=== PATIENT | female | born 1995 | race Caucasian/White ===

== ENCOUNTER 2019-05-28 18:11 | Emergency (ER) | payer OTHER, SELFPAY ==
[2019-05-28 18:12] VITALS: BP 141/91; PULSE 120; RESP 20; TEMP 37; O2SAT 98; BMI 18.6
--- NOTE | 2019-05-28 18:22 | EKG12_ITS ---
Test Reason : SOB Blood Pressure : / mmHG Vent. Rate : 102 BPM Atrial Rate : 102 BPM P-R Int : 130 ms QRS Dur : 078 ms QT Int : 330 ms P-R-T Axes : 045 028 033 degrees QTc Int : 430 ms Sinus tachycardia Otherwise normal ECG No previous ECGs available Confirmed by ERIN ATKINS, GIULIANA ([id number]), technical writer and editor MARCIAL TORRES ([id number]) on 06/11/2019 11:09:34 AM Referred By: KACEY Confirmed By:JARETH KHAN MD
--- NOTE | 2019-05-28 18:23 | ED.VIS.GEN ---
History of Present Illness Chief Complaint: Shortness of Breath Informant: Patient Onset: Days Context: Gradual Onset Timing: Continuous Current Severity: Moderate Maximum Severity: Moderate Narrative: 23-year-old female with medical history significant for asthma who presents to the emergency department with cough, shortness of breath, and chest pain. Patient states that usually, she had a flare in the winter. She has been compliant with all the therapy. She states on , she began to feel like she is having a cold. She states that she started prednisone 2 days ago. Today, she began to have pain mostly in her right chest when she would breathe or cough. She felt more short of breath despite using her inhaler. She denies any fever. She did have a negative influenza testing. She has had scant sputum which she states is normal when she gets an asthma flare. Prior similar symptoms: Yes Recent Illness/Hospitalization: No Past Medical History - Allergies and Home Meds Allergies/Adverse Reactions: Allergies cefdinir [From Omnicef] Allergy (Verified 05/28/19 18:15) Rash Primary Care Physician: [facility] Doctor,Out of [NON-STAFF] - Prior records reviewed: Yes Past Medical History: - - Asthma Surgical History: noncontributory Review of Systems General: Denies: Chills, Fever, Sweats Eyes: Denies: Visual changes - bilaterally, Diplopia ENT: Denies: Rhinorrhea, Sore throat Cardiovascular: Reports: Chest pain. Denies: Palpitations Respiratory: Reports: Dyspnea, Cough. Denies: Dyspnea on exertion Gastrointestinal: Denies: Abdominal pain, Nausea, Vomiting, Diarrhea, Melena, Hematochezia Genitourinary: Denies: Dysuria, Hematuria, Frequency Musculoskeletal: Denies: Back pain, Extremity Pain Skin: Denies: Rash, Wounds Neurological: Denies: Headache, Weakness, Numbness Physical Exam Vital Signs/Narrative: Vital Signs Temp Pulse Resp BP Pulse Ox 05/28/19 18:12 98.6 F 120 H 20 H 141/91 H 98 Inital Vital Signs reviewed: Yes General: Well nourished, Well developed, No Acute Distress Head: Normocephalic, Atraumatic Eyes: Perrl, EOMI ENT: Moist mucous membranes, No rhinorrhea Neck: Supple, Nontender Cardiovascular: Regular rate, Regular rhythm, No murmurs Respiratory: No distress, CTA bilaterally, Chest nontender Abdomen: Soft, Nontender, Nondistended, Normal bowel sounds Back: Nontender, Normal Inspection Extremities: Nontender, No edema Skin: Normal color, No rash Neurological: Alert, Oriented x3, Cranial nerves II-XII grossly intact, Normal Strength, Normal Sensation Psychological: Normal affect, Normal Mood Diagnostic/Tx/Re-eval Chest X-Ray - ED: 2 View, Normal, Heart, Lungs, Mediastinum Clinical Impression(s) from Imaging Studies Chest X-Ray 05/28/19 19:00 IMPRESSION: Normal x-ray examination of the chest. Electronically Signed: Sterling Velez MD at 19:13 EST , Service support , Abnormal Lab Results 05/28/19 05/28/19 05/28/19 18:30 18:30 18:30 WBC 10.7 RBC 4.92 Hgb 14.5 Hct 44.0 MCV 89.4 MCH 29.5 MCHC 33.0 RDW Std Deviation 40.5 RDW Coeff of Shaneka 12.3 Plt Count 292 MPV 9.4 Immature Gran % (Auto) 0.200 Neut % (Auto) 83.2 H Lymph % (Auto) 9.8 L [place] % (Auto) 6.7 Eos % (Auto) 0.0 Baso % (Auto) 0.1 Absolute Neuts (auto) 8.9 H Absolute Lymphs (auto) 1.05 Nucleated RBC % 0 D-Dimer Quant (PE/DVT) < 0.27 L Sodium 139 Potassium 4.0 Chloride 110 H Carbon Dioxide 23.0 Anion Gap 6 BUN 7 Creatinine 0.76 Estim Creat Clear Calc 85.52 Est GFR (MDRD) Af Amer 123 Est GFR (MDRD) Non-Af 102 BUN/Creatinine Ratio 9.2 L Glucose 125 H Calcium 9.4 - Rhythm Strip Rhythm Strip: Sinus Rhythm Ectopy: None - EKG Initial EKG Interpretation: Sinus Rhythm, No Acute Injury Pattern Prior: No Prior - Medical Decision Making The patient presents with shortness of breath and pleuritic chest pain. EKG was obtained with sinus rhythm without acute ischemia. I did obtain a d-dimer given the patient's age and symptoms. This was negative. His symptoms do seem most consistent with asthma exacerbation. She was given nebulized breathing treatments and had improvement. She is now resting comfortably. Labs are unremarkable. Chest x-ray shows no evidence of acute infiltrative process or pneumothorax. Off oxygen is 99%. She is resting comfortably. At this point, I will write the patient for a nebulizer for home use at school because she does not have one here. She has follow-up in place with her tire repairer on Tuesday and will keep this. Impression 1. Acute asthma exacerbation ED Disposition - Plan for ED Patient: Instructions: ASTHMA, Acute (Adult) Prescriptions: Nebulizer and Compressor [[place] Choice Nebulizer] 1 ea MC X1 #1 ea Prescription Printed Albuterol Aerosols [Ventolin Aerosols] 2.5 mg INHALATION Q4H PRN #25 vial Prescription Printed Referrals: [facility],Out of [NON-STAFF] -
[2019-05-28 18:26] VITALS: O2SAT 100
[2019-05-28] MEDS: Ipratropium/Albuterol Sulfate 3 ML AMPUL.NEB INHALATION (18:31)
[2019-05-28] MEDS: Albuterol 2.5 MG/3 ML VIAL.NEB. INHALATION ×2 (18:31→18:49)
[2019-05-28 18:32] VITALS: PULSE 110; RESP 20
[2019-05-28] MEDS: 0.9% Normal Saline 1,000 ML 999 ML IV (18:38)
[2019-05-28] MEDS: Ketorolac 15 MG/ML Vial IV (18:39)
[2019-05-28 18:51] LABS: Absolute Lymphocyte Count 1.05 X10^3/uL (0.83-4.51); Absolute Neutrophil Count 8.9 X10^3/uL (2.0-7.7); Basophil# 0.01 X10^3/uL; Basophil% 0.1 % (0-1); Hemoglobin 14.5 g/dL (12.0-15.0); Lymphocyte # 1.05 X10^3/ul (4.0); Lymphocyte % 9.8 % (19-41); Mean Corpuscular Hgb 29.5 pg (27.0-32.0); Mean Corpuscular Volume 89.4 fL (81-99); Mean Platelet Vol. 9.4 fl (6.2-12.0); Monocyte# 0.71 X10^3/uL; Monocyte% 6.7 % (0-10); NRBC Flagged by Analyzer 0 % (0-5); Neutrophil # 8.88 X10^3/uL (2.7-7.7); Neutrophil % 83.2 % (47-70); Platelet Count 292 K/mm3 (150-450); RBC Distribution Width CV 12.3 % (11.6-14.6); RBC Distribution Width SD 40.5 fl (35.1-43.9); Red Blood Count 4.92 M/mm3 (4.2-5.4); White Blood Count 10.7 K/mm3 (4.4-11.0)
[2019-05-28 18:59] LABS: Anion Gap 6 (5-15); BUN 7 mg/dL (7-18); BUN/Creat Ratio 9.2 RATIO (10-20); Calcium,Total 9.4 mg/dL (8.5-10.1); Chloride 110 mmol/L (98-107); Creatinine, Serum 0.76 mg/dL (0.55-1.02); EST Glomerular Filtration Rate 102 mL/min (>60); Est Glom Filt Rate - Afr Amer 123 mL/min (>60); Estimated Creatinine Clearance 85.52 ml/min; Glucose 125 mg/dL (74-106); Sodium Level 139 mmol/L (136-145)
--- NOTE | 2019-05-28 19:00 | RAD_ITS ---
STUDY: X-RAY CHEST REASON FOR EXAM: Female, 23 years old. Shortness of breath TECHNIQUE: PA and lateral views of the chest. COMPARISON: None. FINDINGS: EKG leads overlie the chest The lungs are clear and expanded. There is no demonstrated pleural abnormality. Normal size heart. Normal mediastinum and berenice. Normal visualized pulmonary arteries. Normal visualized aortic arch and descending thoracic aorta. Normal visualized thoracic spine. Normal visualized ribs, clavicles, and shoulders. There is no demonstrated abnormality of the visualized soft tissue structures of the upper abdomen. RAD/Chest PA and Lateral IMPRESSION: Normal x-ray examination of the chest. Electronically Signed: Sterling Velez MD at 19:13 EST , Service support ,
[2019-05-28 19:39] VITALS: BP 147/93; PULSE 112; RESP 18; O2SAT 98
[2019-05-28 20:37] LABS: D-Dimer Quantitative (DVT/PE) <= 0.27 FEU/ug/m (0.27-0.49)
== END 2019-05-28 19:40 | disposition home or self-care (01) ==
PROVIDERS: Emergency Provider Emergency Medicine
DX: J45.901 Unspecified asthma with (acute) exacerbation (principal)
CPT/HCPCS: 71046; 80048; 85025; 85379; 93005; 94640; 96361; 96374; 99251; 99284; J7030; A4216; G0463